=== PATIENT | female | born 1980 | race Hispanic/Latino ===

== ENCOUNTER 2023-03-23 19:53 | Emergency (ER) | payer MEDICAID, OTHER ==
[~2023-03-23] VITALS: Ht 157.5 cm; Wt 64.4 kg
[2023-03-23 20:37] VITALS: BP 125/85; PULSE 87; RESP 18
== END 2023-03-23 23:21 | disposition left against medical advice (07) ==
LOC: EDH 19:53
DX: R07.89 Other chest pain (principal); R05.9 Cough, unspecified; Z53.21 Procedure and treatment not carried out due to patient leaving prior to being seen by health care provider
CPT/HCPCS: 93005; 99281